=== PATIENT | female | born 1990 | race Caucasian/White ===

== ENCOUNTER 2017-06-18 19:58 | Emergency (ER) | payer MEDICAID, SELFPAY ==
[2017-06-18 19:59] VITALS: BP 142/82; PULSE 88; RESP 18; TEMP 36.7; O2SAT 96; BMI 36.6
--- NOTE | 2017-06-18 20:06 | XR_ITS ---
XR chest 2V Ordering Physician: Patient Age: 26 years: Female HISTORY: ITS.REASON: soa,chest pain Chest pain since this morning. Smoker. TECHNIQUE: PA and lateral chest COMPARISON :CTA chest November 2014 FINDINGS Lungs well expanded and clear with nothing definitely acute. Heart celeste and mediastinal structures satisfactory. No pneumothorax. No pleural effusion. IMPRESSION: Lungs clear nothing definite acute
[2017-06-18 20:18] LABS: Basophils # 0.1 K/mm3 (0-0.2); Basophils % 0.5 % (0.1-2.0); Eosinophils # 0.5 K/mm3 (0.0-0.4); Eosinophils % 3.2 % (0.1-12.0); Hematocrit 45.1 % (37.0-47.0); Hemoglobin 14.6 g/dL (12.2-16.2); Lymphocytes % 21.7 K/mm3 (10-50); Mean Corpuscular HGB Conc 32.3 g/dL (31.8-35.4); Mean Corpuscular Hemoglobin 27.8 pg (27.0-31.2); Mean Corpuscular Volume 86.2 fl (81-99); Mean Platelet Volume 7.8 fl (7.4-10.4); Monocytes # 0.8 K/mm3 (0.1-1.0); Monocytes % 5.7 % (1.7-9.3); Neutrophils # 9.4 K/mm3 (1.8-7.8); Neutrophils % 68.8 % (37.0-80.0); Platelet Count 251 K/mm3 (142-424); Red Blood Count 5.24 M/mm3 (4.20-5.40); Red Cell Distribution Width 13.8 % (11.5-17.5); White Blood Count 13.7 K/mm3 (4.8-10.8)
--- NOTE | 2017-06-18 20:23 | HMH.EDSOB ---
ED Disposition Clinical Impression: Chest pain Qualifiers: Chest pain type: unspecified Qualified Code(s): R07.9 - Chest pain, unspecified Disposition: Home, Self-Care Condition on Discharge: Good Instructions: DI for Atypical Chest Pain Additional Instructions: use nsaif and see pcp for follow up Referrals: Slava Crow MD [Primary Care Provider] - - Critical Care Critical Care Time: No Attestation: On , the high probability of a clinically significant, sudden or life threatening deterioration of the following system(s) required my full and direct attention, intervention and personal management. The time I documented below is in addition to time spent performing reported procedures but includes the following listed in this critical care notation. Medical Decision Making - Medical Records Medical records reviewed: Yes: I reviewed the patient's medical records. Vital Signs: 06/18/17 19:59 06/18/17 20:43 Temperature 98.1 F Temperature Source Oral Pulse Rate [Right Radial] 88 73 Respiratory Rate 18 20 Blood Pressure [Right Arm] 142/82 105/58 Blood Pressure Mean [Right Arm] 102 73 Blood Pressure Source [Right Arm] Automatic Cuff Automatic Cuff Blood Pressure Position [Right Arm] Sitting Supine 02 Sat by Pulse Oximetry 96 98 Oxygen Delivery Method Room Air Room Air - Lab Data Lab results reviewed: Yes: I reviewed the patient's lab results. Lab Results 06/18/17 20:10: WBC 13.7 H, RBC 5.24, Hgb 14.6, Hct 45.1, MCV 86.2, MCH 27.8, MCHC 32.3, RDW 13.8, Plt Count 251, MPV 7.8, Neut % (Auto) 68.8, Lymph % (Auto) 21.7, [place] % (Auto) 5.7, Eos % (Auto) 3.2, Baso % (Auto) 0.5, Neut # (Auto) 9.4 H, Lymph # (Auto) 3.0, [place] # (Auto) 0.8, Eos # (Auto) 0.5 H, Baso # (Auto) 0.1 06/18/17 20:10: Sodium 138, Potassium 3.8, Chloride 102, Carbon Dioxide 30, Anion Gap 9.8, BUN 12, Creatinine 0.74, Estimated Creat Clear 180, Estimated GFR 94, Est GFR ( Amer) 114, Glucose 77, Calcium 9.0, Total Bilirubin 0.2, AST 14 L, ALT 27, Alkaline Phosphatase 103, Total Creatine Kinase 89, CK-MB (CK-2) < 0.5, CK-MB (CK-2) Rel Index 0.6, Troponin I < 0.02, Total Protein 8.0, Albumin 3.8, Globulin 4.2 H, Albumin/Globulin Ratio 0.9 L 06/18/17 20:10: D-Dimer 114 Result diagrams: 06/18/17 20:10 06/18/17 20:10 Orders (Tests/Meds): ORDERS Category Date Time Status XR chest 2V Stat Exams 06/18/17 20:06 Taken - Radiology Data #1 Image(s): Chest Image Reviewed: Yes I reviewed the patient's radiology image Preliminary Findings: Normal/NAD - ECG Data Tracing #1 I reviewed this ECG and interpreted as documented below: Normal Sinus Rhythm: Yes Ischemic changes: non-specific ST-T wave changes - Fish Inquiry Pt receiving controlled substance: No Resp/SOB HPI - General Chief Complaint: Shortness of Breath/Dyspnea Stated Complaint: difficlulty breating Time Seen by Provider: 06/18/17 20:23 Mode of Arrival: Ambulatory Source of Information: Patient, Medical Record Limitations: No Limitations Description of Symptoms (Recalled from ER Triage Doc. by RN): Pt reports difficulty breathing with dull pain across the top of her chest that started at 5 this morning - History of Present Illness ant chest pain since this am with hx of sob over the last month with no fever/rash or trauma - inc with insp MD Complaint: shortness of breath, pain with inspiration, chest pain Onset (ago): hour(s) Severity: moderate Consistency/Duration: intermittent Relieving factors: nothing Exacerbating factors: inspiration - Related Data Home oxygen amount: none Home Medications Medication Instructions Recorded Confirmed buPROPion HCl [Wellbutrin SR 150mg 150 mg PO DAILY 06/18/17 06/18/17 Tablet] Allergies Allergy/AdvReac Type Severity Reaction Status Date / Time latex [LATEX] Allergy Unknown Verified 06/18/17 20:04 [facility] History I have reviewed the patient's past medical history: Yes Laterality Cases:
[2017-06-18 20:43] VITALS: BP 105/58; PULSE 73; RESP 20; O2SAT 98
[2017-06-18 20:44] LABS: Alanine Aminotransferase 27 U/L (12-78); Albumin Level 3.8 gm/dL (3.4-5.0); Albumin/Globulin Ratio 0.9 (1.1-1.8); Alkaline Phosphatase 103 U/L (46-116); Anion Gap 9.8 mEq/L (5-15); Aspartate Amino Transferase 14 U/L (15-37); Bilirubin,Total 0.2 mg/dL (0.2-1.0); Blood Urea Nitrogen 12 mg/dL (7-18); Carbon Dioxide 30 mmol/L (21.0-32.0); Chloride 102 mmol/L (98-107); Creatine Kinase 89 U/L (26-192); Creatinine Clearance Estimated 180 mL/min (0-300); Creatinine,Serum 0.74 mg/dL (0.55-1.02); Estimated Glomerular Filt Rate 94 ml/min (>60); GFR (African American) 114 ML/MIN (>60); Globulin 4.2 gm/dl (1.3-3.2); Glucose 77 mg/dL (74-106); Potassium 3.8 mmoL/L (3.5-5.1); Sodium 138 mmol/L (136-145); Troponin I < 0.02 ng/ml (0.00-0.06)
[2017-06-18 20:45] LABS: CKMB Relative Index 0.6 U/L (0-4.0); Creatine Kinase MB < 0.5 mg/ml (0.0-3.6)
[2017-06-18 21:26] LABS: D-Dimer 114 (0-400)
[2017-06-18 21:38] VITALS: BP 102/60; PULSE 72; RESP 20; TEMP 36.7; O2SAT 98
== END 2017-06-18 21:40 | disposition home or self-care (01) ==
PROVIDERS: Emergency Provider Emergency Medicine; Family Provider Internal Medicine Adolescent Medicine; PCP Internal Medicine Adolescent Medicine
DX: R07.9 Chest pain, unspecified (principal); F17.210 Nicotine dependence, cigarettes, uncomplicated
CPT/HCPCS: 71046; 80053; 82550; 82553; 84484; 85025; 85378; 99283

== ENCOUNTER 2018-05-25 08:30 | Outpatient (RCR) | payer SELFPAY ==
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
== END 2018-05-25 08:35 | disposition home or self-care (01) ==
LOC: PT 08:30
PROVIDERS: Visit Provider Internal Medicine Adolescent Medicine
DX: G44.309 Post-traumatic headache, unspecified, not intractable (principal)
CPT/HCPCS: 97010; 97014; 97035; 97110; 97140; 97163; G0283

== ENCOUNTER 2018-09-30 12:02 | Emergency (ER) | payer SELFPAY ==
[2018-09-30 12:03] VITALS: BP 138/75; PULSE 85; RESP 18; TEMP 37; O2SAT 98; BMI 39.4
[2018-09-30 12:07] VITALS: BMI 39.4
--- NOTE | 2018-09-30 12:07 | CT_ITS ---
CT head/brain wo con HISTORY: HISTORY of seizures ITS.REASON: seizure ORDERING PHYSICIAN: Timbo Wang MD PATIENT AGE: 28 years COMPARISON: CT head April 13, 2018 TECHNIQUE: Axial images obtained without contrast. Brain and bone windows reviewed. All CT scans at the facility use one or more dose reduction, viz: automated exposure control, ma/kV adjustment per patient size (including targeted exams where dose is matched to indication, i.e. head), or iterative reconstruction technique. FINDINGS: No acute intracranial findings. ] No significant changes previous CT head April 2017. The ventricles appear normal. Basal cisterns clear. No midline shift, mass effect, intracranial hemorrhage, hydrocephalus, or extra-axial fluid collection is evident. Posterior fossa unremarkable. The calvarium satisfactory appearance . The mastoid air cells are well-developed and clear. Middle ear clear. IACs unremarkable.. No mastoid effusion . paranasal sinus disease again evident as was noted on April, CT had:. Sphenoid sinus. Most notable is the moderate diffuse mucosal thickening which is increased since prior study at at left sphenoid sinus. Possible small air-fluid level here. Right sphenoid sinus with only trace mucosal thickening anteriorly. Ethmoid air cells colon. Mild mucosal thickening most evident at posterior left ethmoid air cell. Overall improvement of ethmoid air cell since April. Only the top of the maxillary sinuses, mild mucosal thickening which seems to have improved since April. Also mild adenoidal hypertrophy noted not uncommon feature and younger age patient ......IMPRESSION. ............. No acute intracranial findings. The brain appears stable WNL . paranasal sinus disease again noted. . Slight Improvement most areas versus April, however there has been progression of mucosal thickening at left left sphenoid sinus
--- NOTE | 2018-09-30 12:10 | PC.NURSE ---
Pt to rad
--- NOTE | 2018-09-30 12:25 | PC.NURSE ---
pt return from CT
[2018-09-30 12:38] LABS: Microscopic, Urine URINE MICROSCOPIC (MICROSCOPIC)
[2018-09-30 12:38] LABS: Basophils # 0.1 K/mm3 (0-0.2); Basophils % 0.7 % (0.1-2.0); Eosinophils # 0.3 K/mm3 (0.0-0.4); Eosinophils % 2.5 % (0.1-12.0); Hematocrit 46.1 % (37.0-47.0); Lymphocytes # 2.6 K/mm3 (0.7-4.5); Lymphocytes % 21.6 % (10-50); Mean Corpuscular HGB Conc 32.5 g/dL (31.8-35.4); Mean Corpuscular Hemoglobin 26.7 pg (27.0-31.2); Mean Corpuscular Volume 82.2 fl (81-99); Mean Platelet Volume 7.8 fl (7.4-10.4); Monocytes # 0.9 K/mm3 (0.1-1.0); Monocytes % 7.5 % (1.7-9.3); Neutrophils # 8.2 K/mm3 (1.8-7.8); Neutrophils % 67.7 % (37.0-80.0); Platelet Count 265 K/mm3 (142-424); Red Cell Distribution Width 13.7 % (11.5-17.5); White Blood Count 12.1 K/mm3 (4.8-10.8)
[2018-09-30 12:41] LABS: Appearance,Urine CLEAR (Clear); Bilirubin,Urine Negative (Negative); Blood, Urine Negative (Negative); Color,Urine YELLOW (Yellow); Glucose,Urine (UA) Negative (Negative); Ketones,Urine Negative (Negative); Leukocyte Esterase,Urine Negative (Negative); Nitrate,Urine Negative (Negative); Protein,Urine Negative (Negative); Specific Gravity, Urine 1.025 (1.005-1.030); Urobilinogen,Urine 0.2 EU/dl (0.2)
[2018-09-30 12:43] LABS: Urine Pregnancy, HCG Qual. Negative (Negative)
[2018-09-30 12:47] LABS: Bacteria,Urine 3+ /lpf; Mucus,Urine 4+ /lpf
[2018-09-30 12:47] LABS: Alanine Aminotransferase 23 U/L (12-78); Albumin Level 3.7 gm/dL (3.4-5.0); Albumin/Globulin Ratio 0.9 (1.1-1.8); Alkaline Phosphatase 97 U/L (46-116); Anion Gap 14.5 mEq/L (5-15); Aspartate Amino Transferase 12 U/L (15-37); Bilirubin,Total 0.6 mg/dL (0.2-1.0); Blood Urea Nitrogen 13 mg/dL (7-18); Calcium 8.8 mg/dL (8.5-10.1); Carbon Dioxide 26 mmol/L (21.0-32.0); Chloride 104 mmol/L (98-107); Creatinine Clearance Estimated 185 mL/min (50-200); Creatinine,Serum 0.74 mg/dL (0.55-1.02); Estimated Glomerular Filt Rate 93 ml/min (>60); GFR (African American) 112 ML/MIN (>60); Globulin 4.1 gm/dl (1.3-3.2); Glucose 93 mg/dL (74-106); Potassium 3.5 mmoL/L (3.5-5.1); Sodium 141 mmol/L (136-145); Total Protein,Serum 7.8 gm/dL (6.4-8.2)
[2018-09-30 12:48] LABS: Amphetamine/Metha Screen,Urine Negative ng/mL (<1000); Barbiturates Screen,Urine Negative ng/mL (<200); Benzodiazepines Screen,Urine Negative ng/mL (<200); Cannabinoid Screen,Urine Positive ng/mL (<50); Cocaine Screen,Urine Negative ng/mL (<300); Methadone Screen,Urine Negative ng/mL (<300); Opiate Screen,Urine Negative ng/mL (<300); Phencyclidine Screen,Urine Negative ng/mL (<25)
--- NOTE | 2018-09-30 13:04 | PC.NURSE ---
ANDRES ALEJANDRA at
--- NOTE | 2018-09-30 13:04 | PC.NURSE ---
pt is verbally responding to ER MD at this time during exam
--- NOTE | 2018-09-30 13:10 | PC.NURSE ---
ANDRES ALEJANDRA contacting [facility] to speak with neurology
--- NOTE | 2018-09-30 13:12 | HMH.EDGENADL ---
ED Disposition Clinical Impression: Seizure disorder, Chronic migraine, Obesity (BMI 30-39.9), Nicotine use disorder Clinical Impression: (Ruled Out): COPD (chronic obstructive pulmonary disease), Coronary artery calcification, Constipation, Renal cyst, Aneurysm of infrarenal abdominal aorta Disposition: Xfer Short-Term Hosp Condition on Discharge: Fair Instructions: DI for Seizure Disorder -- Adult, DI for Seizure (Not Epilepsy/Seizure Disorder), DI for Seizure Disorder -- Child Referrals: Provider,Referral, MD [Primary Care Provider] - Forms: Transfer Record - ED - Critical Care Critical Care Time: No Attestation: On 09/30/18, the high probability of a clinically significant, sudden or life threatening deterioration of the following system(s) required my full and direct attention, intervention and personal management. The time I documented below is in addition to time spent performing reported procedures but includes the following listed in this critical care notation. Medical Decision Making - Medical Records Medical records reviewed: Yes: I reviewed the patient's medical records. - Fish Inquiry Pt receiving controlled substance: No Fish was queried for this patient: No Vital Signs: 09/30/18 12:03 09/30/18 14:21 09/30/18 14:47 Temperature 98.6 F Temperature Source Axillary Pulse Rate Pulse Rate [Right Radial] 85 64 61 Respiratory Rate 18 12 Blood Pressure Blood Pressure [Right Arm] 138/75 124/80 115/63 Blood Pressure Mean [Right Arm] 96 94 80 Blood Pressure Source [Right Arm] Automatic Cuff Automatic Cuff Automatic Cuff Blood Pressure Position Blood Pressure Position [Right Arm] Sitting Supine Supine 02 Sat by Pulse Oximetry 98 98 96 Oxygen Delivery Method Room Air Room Air Room Air 09/30/18 15:00 09/30/18 16:03 09/30/18 16:35 Temperature 98.6 F Temperature Source Pulse Rate 61 Pulse Rate [Right Radial] 59 L 79 Respiratory Rate 18 Blood Pressure 119/68 Blood Pressure [Right Arm] 115/63 116/49 L Blood Pressure Mean [Right Arm] 80 71 Blood Pressure Source [Right Arm] Automatic Cuff Automatic Cuff Blood Pressure Position Sitting Blood Pressure Position [Right Arm] Sitting 02 Sat by Pulse Oximetry 97 96 Oxygen Delivery Method Room Air Room Air Room Air - Lab Data Lab Results 09/30/18 12:00: WBC 12.1 H, RBC 5.60 H, Hgb 15.0, Hct 46.1, MCV 82.2, MCH 26.7 L, MCHC 32.5, RDW 13.7, Plt Count 265, MPV 7.8, Neut % (Auto) 67.7, Lymph % (Auto) 21.6, [place] % (Auto) 7.5, Eos % (Auto) 2.5, Baso % (Auto) 0.7, Neut # (Auto) 8.2 H, Lymph # (Auto) 2.6, [place] # (Auto) 0.9, Eos # (Auto) 0.3, Baso # (Auto) 0.1 09/30/18 12:00: Sodium 141, Potassium 3.5, Chloride 104, Carbon Dioxide 26, Anion Gap 14.5, BUN 13, Creatinine 0.74, Estimated Creat Clear 185, Estimated GFR 93, Est GFR ( Amer) 112, Glucose 93, Calcium 8.8, Total Bilirubin 0.6, AST 12 L, ALT 23, Alkaline Phosphatase 97, Total Protein 7.8, Albumin 3.7, Globulin 4.1 H, Albumin/Globulin Ratio 0.9 L 09/30/18 12:10: Urine Color Yellow, Urine Appearance Clear, Urine pH 6.0, Ur Specific [place] 1.025, Urine Protein Negative, Urine Glucose (UA) Negative, Urine Ketones Negative, Urine Blood Negative, Urine Nitrate Negative, Urine Bilirubin Negative, Urine Urobilinogen 0.2, Ur Leukocyte Esterase Negative, Urine WBC 3-5, Ur Squamous Epith Cells 3-5, Urine Bacteria 3+, Urine Mucus 4+ 09/30/18 12:10: Urine HCG, Qual Negative 09/30/18 12:10: Urine Opiates Screen Negative, Urine Methadone Screen Negative, Ur Barbituates Screen Negative, Ur Phencyclidine Scrn Negative, Ur Amphetamines Screen Negative, U Benzodiazepines Scrn Negative, Urine Cocaine Screen Negative, U Marijuana (THC) Screen Positive H Result diagrams: 09/30/18 12:00 09/30/18 12:00 Orders (Tests/Meds): ORDERS Category Date Time Status Urine Culture Stat Micro 09/30/18 12:10 Received - CT Data CT Scan: Head Time Received: 20:[address] Reviewed: Yes: I have
--- NOTE | 2018-09-30 13:18 | ED_ITS ---
ED Disposition Clinical Impression: Seizure disorder, Chronic migraine, Obesity (BMI 30-39.9), Nicotine use disorder Clinical Impression: (Ruled Out): COPD (chronic obstructive pulmonary disease), Coronary artery calc ification, Constipation, Renal cyst, Aneurysm of infrarenal abdominal aorta Disposition: Xfer Short-Term Hosp Condition on Discharge: Fair Instructions: DI for Seizure Disorder -- Adult, DI for Seizure (Not Epilepsy/Seizure Disorder), DI for Seizure Disorder -- Child Referrals: Provider,Referral, MD [Primary Care Provider] - Forms: Transfer Record - ED - Critical Care Critical Care Time: No Attestation: On 09/30/18, the high probability of a clinically significant, sudden or life threatening deterioration of the following system(s) required my full and direct attention, intervention and personal management. The time I documented below is in addition to time spent performing reported procedures but includes the following listed in this critical care notation. Medical Decision Making - Medical Records Medical records reviewed: Yes: I reviewed the patient's medical records. - Fish Inquiry Pt receiving controlled substance: No Fish was queried for this patient: No Vital Signs: 09/30/18 12:03 09/30/18 14:21 09/30/18 14:47 Temperature 98.6 F Temperature Source Axillary Pulse Rate Pulse Rate [Right Radial] 85 64 61 Respiratory Rate 18 12 Blood Pressure Blood Pressure [Right Arm] 138/75 124/80 115/63 Blood Pressure Mean [Right Arm] 96 94 80 Blood Pressure Source [Right Arm] Automatic Cuff Automatic Cuff Automatic Cuff Blood Pressure Position Blood Pressure Position [Right Arm] Sitting Supine Supine 02 Sat by Pulse Oximetry 98 98 96 Oxygen Delivery Method Room Air Room Air Room Air 09/30/18 15:00 09/30/18 16:03 09/30/18 16:35 Temperature 98.6 F Temperature Source Pulse Rate 61 Pulse Rate [Right Radial] 59 L 79 Respiratory Rate 18 Blood Pressure 119/68 Blood Pressure [Right Arm] 115/63 116/49 L Blood Pressure Mean [Right Arm] 80 71 Blood Pressure Source [Right Arm] Automatic Cuff Automatic Cuff Blood Pressure Position Sitting Blood Pressure Position [Right Arm] Sitting 02 Sat by Pulse Oximetry 97 96 Oxygen Delivery Method Room Air Room Air Room Air - Lab Data Lab Results 09/30/18 12:00: WBC 12.1 H, RBC 5.60 H, Hgb 15.0, Hct 46.1, MCV 82.2, MCH 26.7 L , MCHC 32.5, RDW 13.7, Plt Count 265, MPV 7.8, Neut % (Auto) 67.7, Lymph % ( Auto) 21.6, [place] % (Auto) 7.5, Eos % (Auto) 2.5, Baso % (Auto) 0.7, Neut # (Auto) 8.2 H, Lymph # (Auto) 2.6, [place] # (Auto) 0.9, Eos # (Auto) 0.3, Baso # (Auto) 0.1 09/30/18 12:00: Sodium 141, Potassium 3.5, Chloride 104, Carbon Dioxide 26, Anion Gap 14.5, BUN 13, Creatinine 0.74, Estimated Creat Clear 185, Estimated GFR 93, Est GFR ( Amer) 112, Glucose 93, Calcium 8.8, Total Bilirubin 0.6, AST 12 L, ALT 23, Alkaline Phosphatase 97, Total Protein 7.8, Albumin 3.7, Globulin 4.1 H, Albumin/Globulin Ratio 0.9 L 09/30/18 12:10: Urine Color Yellow, Urine Appearance Clear, Urine pH 6.0, Ur Specific [place] 1.025, Urine Protein Negative, Urine Glucose (UA) Negative, U rine Ketones Negative, Urine Blood Negative, Urine Nitrate Negative, Urine Bilirubin Negative, Urine Urobilinogen 0.2, Ur Leukocyte Esteras
--- NOTE | 2018-09-30 13:25 | PC.NURSE ---
pt accepted to ER per Dr. Barrientos
--- NOTE | 2018-09-30 13:30 | PC.NURSE ---
[facility] aware of transfer on pt to , they do not have a truck available. They have attempted to contact another service to try and transport pt but no other services were available. Stated they will transport pt just as soon as a truck is available
[2018-09-30 14:21] VITALS: BP 124/80; PULSE 64; RESP 12; O2SAT 98
[2018-09-30 14:47] VITALS: BP 115/63; PULSE 61; O2SAT 96
[2018-09-30 15:00] VITALS: BP 115/63; PULSE 59; O2SAT 97
--- NOTE | 2018-09-30 15:21 | PC.NURSE ---
report called to FRANCIS Durant at ER
[2018-09-30 16:03] VITALS: BP 116/49; PULSE 79; O2SAT 96
--- NOTE | 2018-09-30 16:12 | PC.NURSE ---
report given to [facility] at this time
[2018-09-30 16:35] VITALS: BP 119/68; PULSE 61; RESP 18; TEMP 37; O2SAT 94
== END 2018-09-30 16:35 | disposition short-term general hospital (02) ==
PROVIDERS: Emergency Provider Emergency Medicine
DX: G40.909 Epilepsy, unspecified, not intractable, without status epilepticus (principal); G43.709 Chronic migraine without aura, not intractable, without status migrainosus; E66.9 Obesity, unspecified; F17.210 Nicotine dependence, cigarettes, uncomplicated
CPT/HCPCS: 70450; 80053; 80305; 81001; 81025; 85025; 87086; 99285

== ENCOUNTER 2018-12-23 14:23 | Outpatient (CLI) | payer MEDICAID, SELFPAY ==
--- NOTE | 2018-12-23 14:56 | PC.NURSE ---
DIFFICULTY WITH DOCUMENTATION... DRESSING CHANGE WAS PERFORMED TO LT ARMPIT. PACKING TAPE WAS REMOVED AND REPLACED, COVERED WITH STERILE GAUZE AND TEGADERM.
== END 2018-12-23 14:59 | disposition home or self-care (01) ==
LOC: UTC.OUT 14:24
PROVIDERS: PCP Internal Medicine Adolescent Medicine; Visit Provider Nurse Practitioner Family
DX: L02.412 Cutaneous abscess of left axilla (principal)

== ENCOUNTER 2019-05-23 20:48 | Observation (INO) ==
[2019-05-23 21:32] LABS: Basophils # 0.1 K/mm3 (0-0.2); Basophils % 0.5 % (0.1-2.0); Eosinophils # 0.4 K/mm3 (0.0-0.4); Eosinophils % 3.2 % (0.1-12.0); Hematocrit 40.2 % (37.0-47.0); Hemoglobin 13.8 g/dL (12.2-16.2); Lymphocytes # 2.2 K/mm3 (0.7-4.5); Lymphocytes % 19.9 % (10-50); Mean Corpuscular HGB Conc 34.3 g/dL (31.8-35.4); Mean Platelet Volume 7.8 fl (7.4-10.4); Monocytes # 0.5 K/mm3 (0.1-1.0); Monocytes % 4.8 % (1.7-9.3); Neutrophils # 7.9 K/mm3 (1.8-7.8); Neutrophils % 71.6 % (37.0-80.0); Platelet Count 256 K/mm3 (142-424); Red Blood Count 4.79 M/mm3 (4.20-5.40); Red Cell Distribution Width 13.6 % (11.5-17.5)
--- NOTE | 2019-05-23 21:42 | Emergency Department Note ---
ED Disposition Clinical Impression: Obesity (BMI 30-39.9) Abscess of skin or subcutaneous tissue Qualifiers: Site of cutaneous abscess: extremity Site of cutaneous abscess of extremity: axilla Laterality: left Qualified Code(s): L02.412 - Cutaneous abscess of left axilla Disposition: Admitted as Observation Condition on Discharge: Good - Critical Care Critical Care Time: No Attestation: On 05/23/19, the high probability of a clinically significant, sudden or life threatening deterioration of the following system(s) required my full and direct attention, intervention and personal management. The time I documented below is in addition to time spent performing reported procedures but includes the following listed in this critical care notation. Medical Decision Making - Medical Records Medical records reviewed: Yes: I reviewed the patient's medical records. - Fish Inquiry Pt receiving controlled substance: No Vital Signs: 05/23/19 20:59 Temperature 98.9 F Temperature Source Oral Pulse Rate [Right Brachial] 88 Respiratory Rate 18 Blood Pressure [Right Arm] 132/72 Blood Pressure Mean [Right Arm] 92 Blood Pressure Source [Right Arm] Automatic Cuff Blood Pressure Position [Right Arm] Sitting 02 Sat by Pulse Oximetry 98 Oxygen Delivery Method Room Air - Lab Data Lab results reviewed: Yes: I reviewed the patient's lab results. Lab Results 05/23/19 21:16: WBC 11.0 H, RBC 4.79, Hgb 13.8, Hct 40.2, MCV 84.0, MCH 28.8, MCHC 34.3, RDW 13.6, Plt Count 256, MPV 7.8, Neut % (Auto) 71.6, Lymph % (Auto) 19.9, [place] % (Auto) 4.8, Eos % (Auto) 3.2, Baso % (Auto) 0.5, Neut # (Auto) 7.9 H, Lymph # (Auto) 2.2, [place] # (Auto) 0.5, Eos # (Auto) 0.4, Baso # (Auto) 0.1 05/23/19 21:16: Lactate 0.8 Result diagrams: 05/23/19 21:16 Orders (Tests/Meds): ED MEDICATIONS Generic Name Dose Route Start Last Admin Trade Name Freq PRN Reason Stop Dose Admin Vancomycin HCl 2,000 mg 05/24/19 09:00 Vancomycin 1000mg Vial IV 06/07/19 08:59 DAILY STEF Protocol ORDERS Category Date Time Status Comprehensive Metabolic Panel Stat Lab 05/23/19 21:16 Received Blood Culture Stat Micro 05/23/19 21:16 Received Wound Culture and Gram Stain Stat Micro 05/23/19 21:04 Ordered Skin/Abscess/FB HPI - General Chief complaint: Skin/Abscess/Foreign Body Stated complaint: abcess under left arm Time Seen by Provider: 05/23/19 21:20 Mode of Arrival: Family Vehicle Source of Information: Patient, Significant Other, Medical Record Limitations: No Limitations Description of Symptoms (Recalled from ER Triage Doc. by RN): PT STATES SHE KEEPS GETTING RECURRENT ABSCESSES UNDER HER LEFT ARM. NOTED AN ABSECESS WITH SURROUNDING CELLULITIS AT SITE SHE DESCRIBED. STATES SHE HAD LEFTOVER BACTRIM AT HOME, AND STARTED HERSELF ON THAT, HAD 3 DOSES, NO IMPROVEMENT. - History of Present Illness HPI narrative: progressive abscess lt axilla with no known preg or diabetes and has had in past with prev i/d MD complaint: abscess/boil Onset (ago): day(s) Tetanus up to date: unsure Location: LUE Severity: moderate Associated symptoms: denies other symptoms Treatments prior to arrival: none - Related Data Home Medications Medication Instructions Recorded Confirmed Nortriptyline HCl 25 mg PO DAILY 04/24/19 05/23/19 lamoTRIgine [Lamotrigine] 50 mg PO BID 04/24/19 05/23/19 Allergies Allergy/AdvReac Type Severity Reaction Status Date / Time latex [LATEX] Allergy Unknown Verified 01/05/19 21:46 [facility] History - Hepatitis A Screen Drug use history?: No High risk sexual behaviors?: No History of sexually transmitted infection?: No Currently employed?: No Childcare worker?: No Do you have indoor plumbing?: Yes Do you have electricity?: Yes Attestation statement:: This patient has been screened for Hepatitis A risk factors. I have reviewed the patient's past medical history: Yes Medical History: Denies:: Cancer, Diabetes Mellitus Type 1, Diabetes Mellitus Type 2, MRSA Laterality Cases: Bilateral: Tonsillectomy, Other Other Surgeries: Yes: , Sinus Surgery, Tubal Ligation, Other Amputation: No - Social History Smoking Status: Current every day smoker Tobacco Type: cigarettes # Packs/Day (cigarettes): 1 Alcohol Intake: never Substance Use Type: denies use Occupational Status: employed Family Hx:: No significant family history ROS Obtained: Yes All systems reviewed & no additional complaints - Constitutional Constitutional: Denies fever(s) - Eyes Eyes: Denies change in vision - ENT Ears, Nose, Mouth, and Throat: Denies sore throat - Cardiovascular Cardiovascular: Denies chest pain - Respiratory Respiratory: No cough - Gastrointestinal Gastrointestingal: Denies: abdominal pain - Genitourinary Female Genitourinary: Denies hematuria - Musculoskeletal Musculoskeletal: Denies joint swelling - Integumentary/Breasts Skin/Breast: Denies rash - Neurologic Neurologic: Denies seizure-like activity Physical Exam - General General appearance: alert, obese - Head Head exam: normocephalic - Eye Eye exam: Present: PERRL, EOMI - ENT ENT exam: Present: mucous membranes moist - Neck Neck exam: Present: trachea midline - Respiratory Respiratory exam: Absent: respiratory distress - Cardiovascular Cardiovascular exam: Present: regular rate - Abdominal Exam Abdominal exam: Present: soft - Extremities Exam Extremities exam: Present: full ROM - Neurological Exam Neurological exam: Present: alert, oriented X3, CN II-XII intact - Psychiatric Psychiatric exam: Present: normal affect - Skin Skin exam: Present: other (tender 3x4 cm abscess lt axilla )
[2019-05-23 22:00] LABS: Albumin Level 3.9 g/dL (3.4-5.0); Anion Gap 14.6 mEq/L (5-15); Bilirubin,Total 0.4 mg/dL (0.2-1.0); Calcium 9.2 mg/dL (8.5-10.1); Globulin 3.8 gm/dl (1.3-3.2); Total Protein,Serum 7.7 g/dL (6.4-8.2)
--- NOTE | 2019-05-24 07:26 | Consult Report ---
*Admission Date: 05/23/19 *Reason for consult:: Left axillary abscess *History of present illness: This is a 28-year-old female admitted after presenting emergency department with increased pain/swelling/redness along the left axilla. She has history of axillary abscess and recently had a separate lesion that drained. No fevers. Review of Systems - Constitutional Denies fatigue - Eyes Denies change in vision - ENT Denies difficulty swallowing - *Cardiovascular Denies chest pain - *Respiratory Denies cough - *Gastrointestinal Denies abdominal pain - *Musculoskeletal Denies deformity - Integumentary/Breasts Reports redness, Reports new lesions - *Neurologic Denies seizure-like activity - Psychiatric Denies anxiety - Hematologic/Lymphatic Denies easy bleeding [facility] History Medical History: Denies:: Cancer, Diabetes Mellitus Type 1, Diabetes Mellitus Type 2, MRSA *Have you ever received a pneumonia vaccine?: Yes *Have you received a flu vaccine this season?: No Other Medical History: Reports: Liver Disease (fatty liver) Laterality Cases: Bilateral: Tonsillectomy, Other Other Surgeries: Yes: , Sinus Surgery, Tubal Ligation, Other Amputation: No - *Social History Educational Level: Completed High School Smoking Status: Current every day smoker Tobacco Type: cigarettes # Packs/Day (cigarettes): 1 Alcohol Intake: current Alcohol Intake Frequency:: holidays/special occasions only Substance Use Type: marijuana, prescription drug *Occupational Status:: employed *Travel in the last 8 weeks: None Family Hx:: Anemia, Cancer, Thyroid Disorder, Substance abuse Meds Home Medications Medication Instructions Recorded Confirmed Type Nortriptyline HCl 25 mg PO DAILY 04/24/19 05/23/19 History lamoTRIgine [Lamotrigine] 50 mg PO BID 04/24/19 05/23/19 History Allergies Allergy/AdvReac Type Severity Reaction Status Date / Time latex [LATEX] Allergy Unknown Verified 01/05/19 21:46 Exam Vital signs and Labs for Last 24 Hours: Temp Pulse Resp BP Pulse Ox 97.8 F 91 H 16 105/52 L 94 L 05/24/19 04:00 05/24/19 04:00 05/24/19 04:00 05/24/19 04:00 05/24/19 04:00 Laboratory Results - last 24 hr 05/23/19 21:16: WBC 11.0 H, RBC 4.79, Hgb 13.8, Hct 40.2, MCV 84.0, MCH 28.8, MCHC 34.3, RDW 13.6, Plt Count 256, MPV 7.8, Neut % (Auto) 71.6, Lymph % (Auto) 19.9, [place] % (Auto) 4.8, Eos % (Auto) 3.2, Baso % (Auto) 0.5, Neut # (Auto) 7.9 H, Lymph # (Auto) 2.2, [place] # (Auto) 0.5, Eos # (Auto) 0.4, Baso # (Auto) 0.1 05/23/19 21:16: Sodium 141, Potassium 3.6, Chloride 103, Carbon Dioxide 27, Anion Gap 14.6, BUN 14, Creatinine 0.83, Estimated Creat Clear 158, Estimated GFR 81, Est GFR ( Amer) 98, Glucose 106, Calcium 9.2, Total Bilirubin 0.4, AST 16, ALT 23, Alkaline Phosphatase 114, Total Protein 7.7, Albumin 3.9, Globulin 3.8 H, Albumin/Globulin Ratio 1.0 L 05/23/19 21:16: Lactate 0.8 I & O for Last 24 hours: Intake & Output 05/21/19 05/22/19 05/23/19 05/24/19 11:59 11:59 11:59 11:59 Intake Total 921 / 921 Balance 921 / 921 Weight 214 lb 4.629 oz - Constitutional no acute distress - *Routine Respiratory Exam Absent: respiratory distress - *Routine Cardiovascular Exam Present: RRR - *Routine Skin Exam Comments: Left axillary abscess with some mild surrounding erythema Results - Labs 05/23/19 21:16 05/23/19 21:16 Laboratory Results - last 24 hr 05/23/19 21:16: WBC 11.0 H, RBC 4.79, Hgb 13.8, Hct 40.2, MCV 84.0, MCH 28.8, MCHC 34.3, RDW 13.6, Plt Count 256, MPV 7.8, Neut % (Auto) 71.6, Lymph % (Auto) 19.9, [place] % (Auto) 4.8, Eos % (Auto) 3.2, Baso % (Auto) 0.5, Neut # (Auto) 7.9 H, Lymph # (Auto) 2.2, [place] # (Auto) 0.5, Eos # (Auto) 0.4, Baso # (Auto) 0.1 05/23/19 21:16: Sodium 141, Potassium 3.6, Chloride 103, Carbon Dioxide 27, Anion Gap 14.6, BUN 14, Creatinine 0.83, Estimated Creat Clear 158, Estimated GFR 81, Est GFR ( Amer) 98, Glucose 106, Calcium 9.2, Total Bilirubin 0.4, AST 16, ALT 23, Alkaline Phosphatase 114, Total Protein 7.7, Albumin 3.9, Globulin 3.8 H, Albumin/Globulin Ratio 1.0 L 05/23/19 21:16: Lactate 0.8 Assessment and Plan (1) Abscess of left axilla Current visit: Yes Status: Acute Category: Medical Code(s): L02.412 - Cutaneous abscess of left axilla She is being scheduled for incision and drainage of abscess later today. I have discussed the risks and benefits including, but not limited to: Bleeding Infection Damage to surrounding tissue Inherent risks of sedation The patient agrees to proceed.
--- NOTE | 2019-05-24 07:27 | Pharmacy Consult Notes ---
[facility] Pharmacy VTE Monitoring - Patient Demographics Admission date: 05/23/19 Report Date: 05/24/19 Time: 07:27 Allergies/Adverse Reactions: Patient Allergies latex [LATEX] Allergy (Unknown, Verified 01/05/19 21:46) Height: 1.65 m Weight: 97.2 kg Patient Problems: Current Active Problems Obesity (BMI 30-39.9) (Acute) Abscess of skin or subcutaneous tissue (Acute) - VTE Risk Labs: VTE Related Lab Results Hgb 13.8 g/dL (12.2-16.2) 05/23/19 21:16 Hct 40.2 % (37.0-47.0) 05/23/19 21:16 Plt Count 256 K/mm3 (142-424) 05/23/19 21:16 BUN 14 mg/dL (7-18) 05/23/19 21:16 Creatinine 0.83 mg/dL (0.55-1.02) 05/23/19 21:16 Estimated Creat Clear 158 mL/min (50-200) 05/23/19 21:16 VTE Score: 4 VTE Risk Level: Low Risk - Prophylaxis VTE Prophylaxis Ordered?: Yes Types of VTE Prophylaxis: TEDS Knee High Location of Applied Device: Bilateral Lower Extremeties
[2019-05-24 07:32] LABS: Basophils % 0.4 % (0.1-2.0); Eosinophils # 0.3 K/mm3 (0.0-0.4); Eosinophils % 2.8 % (0.1-12.0); Hematocrit 37.6 % (37.0-47.0); Lymphocytes # 2.2 K/mm3 (0.7-4.5); Lymphocytes % 21.7 % (10-50); Mean Corpuscular HGB Conc 32.6 g/dL (31.8-35.4); Mean Corpuscular Volume 86.1 fl (81-99); Mean Platelet Volume 7.9 fl (7.4-10.4); Monocytes # 0.6 K/mm3 (0.1-1.0); Monocytes % 5.8 % (1.7-9.3); Neutrophils % 69.4 % (37.0-80.0); Platelet Count 236 K/mm3 (142-424); Red Blood Count 4.37 M/mm3 (4.20-5.40); Red Cell Distribution Width 13.7 % (11.5-17.5)
[2019-05-24 07:58] LABS: Calcium 8.2 mg/dL (8.5-10.1)
[2019-05-24 08:35] LABS: Hemoglobin 12.3 g/dL (12.2-16.2)
--- NOTE | 2019-05-24 09:06 | History & Physical Report ---
*Admission Date: 05/23/19 *Chief complaint: left axillary swelling/abscess *History of present illness: Patient is a 28-year-old female with history of migraines and seizure disorder who presents with 1 week of worsening left axillary pain and swelling. She reports having a history of recurrent abscesses and noted onset of this lesion approximately a week ago. Was initially a small nodule and tender and after not resolving on its own, decided to take some leftover Bactrim that she had at home. She took 3 doses with no improvement and came to the ER last night due to worsening pain. Denies any fever, nausea, vomiting, diarrhea. No rashes. Does have a small lesion on her right lower flank that she thinks may be due to a contact dermatitis as she is allergic to certain metals. Otherwise well at her baseline. Staying hydrated. Admitted to medicine for further management. Consult to surgery placed, they already seen her this morning and are recommending I&D in the OR. Leading edge of erythematous region marked in the ER, unfortunately she did not receive her dose of vancomycin overnight and there is a slight progression of leading edge on her arm of the inflammation and erythema. [facility] History I have reviewed the patient's past medical history: Yes Medical History: Reports:: Migraine, Seizures Denies:: Cancer, Diabetes Mellitus Type 1, Diabetes Mellitus Type 2, MRSA *Have you ever received a pneumonia vaccine?: Yes *Have you received a flu vaccine this season?: No Other Medical History: Reports: Liver Disease (fatty liver) Laterality Cases: Bilateral: Tonsillectomy, Other Other Surgeries: Yes: , Sinus Surgery, Tubal Ligation, Other Amputation: No - *Social History Educational Level: Completed High School Smoking Status: Current every day smoker Tobacco Type: cigarettes # Packs/Day (cigarettes): 1 Alcohol Intake: current Alcohol Intake Frequency:: holidays/special occasions only Substance Use Type: marijuana, prescription drug *Occupational Status:: employed *Travel in the last 8 weeks: None Family Hx:: Anemia, Cancer, Thyroid Disorder, Substance abuse Review of Systems - Review of Systems Review of systems:: pertinent systems reviewed and negative unless documented below (14pt ROS performed, pertinent positives and negatives per HPI) - *Neurologic Denies seizure-like activity Meds Home Medications Medication Instructions Recorded Confirmed Type RX: Nortriptyline HCl 25 mg PO DAILY 04/24/19 05/23/19 History lamoTRIgine [Lamotrigine] 50 mg PO BID 04/24/19 05/23/19 History Allergies Allergy/AdvReac Type Severity Reaction Status Date / Time latex [LATEX] Allergy Unknown Verified 01/05/19 21:46 Exam Vital signs and Labs for Last 24 Hours: Temp Pulse Resp BP Pulse Ox 98.0 F 83 17 117/79 97 05/24/19 07:41 05/24/19 07:41 05/24/19 07:41 05/24/19 07:41 05/24/19 07:41 Laboratory Results - last 24 hr 05/23/19 21:16: WBC 11.0 H, RBC 4.79, Hgb 13.8, Hct 40.2, MCV 84.0, MCH 28.8, MCHC 34.3, RDW 13.6, Plt Count 256, MPV 7.8, Neut % (Auto) 71.6, Lymph % (Auto) 19.9, [place] % (Auto) 4.8, Eos % (Auto) 3.2, Baso % (Auto) 0.5, Neut # (Auto) 7.9 H, Lymph # (Auto) 2.2, [place] # (Auto) 0.5, Eos # (Auto) 0.4, Baso # (Auto) 0.1 05/23/19 21:16: Sodium 141, Potassium 3.6, Chloride 103, Carbon Dioxide 27, Anion Gap 14.6, BUN 14, Creatinine 0.83, Estimated Creat Clear 158, Estimated GFR 81, Est GFR ( Amer) 98, Glucose 106, Calcium 9.2, Total Bilirubin 0.4, AST 16, ALT 23, Alkaline Phosphatase 114, Total Protein 7.7, Albumin 3.9, Globulin 3.8 H, Albumin/Globulin Ratio 1.0 L 05/23/19 21:16: Lactate 0.8 05/24/19 06:48: WBC 10.0, RBC 4.37, Hgb 12.3 D, Hct 37.6, MCV 86.1, MCH 28.0, MCHC 32.6, RDW 13.7, Plt Count 236, MPV 7.9, Neut % (Auto) 69.4, Lymph % (Auto) 21.7, [place] % (Auto) 5.8, Eos % (Auto) 2.8, Baso % (Auto) 0.4, Neut # (Auto) 7.0, Lymph # (Auto) 2.2, [place] # (Auto) 0.6, Eos # (Auto) 0.3, Baso # (Auto) 0.0 05/24/19 06:48: Sodium 141, Potassium 4.0, Chloride 107, Carbon Dioxide 25, Anion Gap 13.0, BUN 13, Creatinine 0.63 D, Estimated Creat Clear 202, Estimated GFR 112, Est GFR ( Amer) 135 D, Glucose 87, Calcium 8.2 L D I & O for Last 24 hours: Intake & Output 05/21/19 05/22/19 05/23/19 05/24/19 23:59 23:59 23:59 23:59 Intake Total 921 / 921 Output Total 300 / 300 Balance 621 / 621 Weight 97.239 kg 97.2 kg - Constitutional no acute distress, obese - *Routine HEENT Exam Head: Present: normocephalic Eye: Present: EOMI, PERRL ENT: Present: mucous membranes moist - *Routine Neck Exam Present: supple. Absent: lymphadenopathy - *Routine Respiratory Exam Present: CTA bilaterally - *Routine Cardiovascular Exam Present: RRR - *Routine Abdominal Exam Present: soft, normoactive bowel sounds. Absent: tenderness - *Routine Extremities Exam Absent: cyanosis, clubbing, edema - *Routine Skin Exam Present: warm, lesions (Abscess left upper arm and axillary region, 5 cm of induration subcutaneous. Tender to palpation. Erythema that tracks down to her elbow. No drainage however a head is present on lesion. Mild warmth). Absent: rash - *Routine Neurological Exam Present: alert, oriented X3 Assessment and Plan (1) Abscess of left axilla Current visit: Yes Status: Acute Category: Medical Code(s): L02.412 - Cutaneous abscess of left axilla (2) Obesity (BMI 30-39.9) Current visit: Yes Status: Chronic Category: Medical Code(s): E66.9 - Obesity, unspecified (3) Chronic migraine Current visit: No Status: Chronic Category: Medical Code(s): G43.709 - Chronic migraine without aura, not intractable, without status migrainosus (4) Nicotine use disorder Current visit: No Status: Chronic Category: Medical Code(s): F17.200 - Nicotine dependence, unspecified, uncomplicated (5) Seizure disorder Current visit: No Status: Chronic Category: Medical Code(s): G40.909 - Epilepsy, unspecified, not intractable, without status epilepticus - Assessment and plan all Dx Assessment and Plan for all problems:: 28-year-old female with large abscess left axilla. Plan for I&D later today. Will broaden antibiotics with vancomycin and Zosyn. Further management pending surgical intervention. Continue treatment for seizure disorder and chronic migraines. Her obesity complicates all aspects of her care. Full code. Regular diet while she is able to eat. Seizure precautions at this time. Continues to require inpatient management
--- NOTE | 2019-05-24 09:19 | Pharmacy Consult Notes ---
- Pharmacy Consult Date: 05/24/19 Time: 09:18 Referring provider: DR. DAVENPORT Reason for Consult:: VANCOMYCIN DOSING Allergies and ADEs:: Allergies Allergy/AdvReac Type Severity Reaction Status Date / Time latex [LATEX] Allergy Unknown Verified 01/05/19 21:46 Home Medications:: Home Medications Medication Instructions Recorded Confirmed Type Nortriptyline HCl 25 mg PO DAILY 04/24/19 05/23/19 History lamoTRIgine [Lamotrigine] 50 mg PO BID 04/24/19 05/23/19 History Height: 1.65 m Weight: 97.2 kg Laboratory Results:: Laboratory Results - last 24 hr 05/23/19 21:16: WBC 11.0 H, RBC 4.79, Hgb 13.8, Hct 40.2, MCV 84.0, MCH 28.8, MCHC 34.3, RDW 13.6, Plt Count 256, MPV 7.8, Neut % (Auto) 71.6, Lymph % (Auto) 19.9, [place] % (Auto) 4.8, Eos % (Auto) 3.2, Baso % (Auto) 0.5, Neut # (Auto) 7.9 H, Lymph # (Auto) 2.2, [place] # (Auto) 0.5, Eos # (Auto) 0.4, Baso # (Auto) 0.1 05/23/19 21:16: Sodium 141, Potassium 3.6, Chloride 103, Carbon Dioxide 27, Anion Gap 14.6, BUN 14, Creatinine 0.83, Estimated Creat Clear 158, Estimated GFR 81, Est GFR ( Amer) 98, Glucose 106, Calcium 9.2, Total Bilirubin 0.4, AST 16, ALT 23, Alkaline Phosphatase 114, Total Protein 7.7, Albumin 3.9, Globulin 3.8 H, Albumin/Globulin Ratio 1.0 L 05/23/19 21:16: Lactate 0.8 05/24/19 06:48: WBC 10.0, RBC 4.37, Hgb 12.3 D, Hct 37.6, MCV 86.1, MCH 28.0, MCHC 32.6, RDW 13.7, Plt Count 236, MPV 7.9, Neut % (Auto) 69.4, Lymph % (Auto) 21.7, [place] % (Auto) 5.8, Eos % (Auto) 2.8, Baso % (Auto) 0.4, Neut # (Auto) 7.0, Lymph # (Auto) 2.2, [place] # (Auto) 0.6, Eos # (Auto) 0.3, Baso # (Auto) 0.0 05/24/19 06:48: Sodium 141, Potassium 4.0, Chloride 107, Carbon Dioxide 25, Anion Gap 13.0, BUN 13, Creatinine 0.63 D, Estimated Creat Clear 202, Estimated GFR 112, Est GFR ( Amer) 135 D, Glucose 87, Calcium 8.2 L D Medical History: Reports:: Migraine, Seizures Denies:: Cancer, Diabetes Mellitus Type 1, Diabetes Mellitus Type 2, MRSA Assessment and Plan (1) Abscess of left axilla Current visit: Yes Status: Acute Category: Medical Code(s): L02.412 - Cutaneous abscess of left axilla - Assessment and plan all Dx Assessment and Plan for all problems:: BASED ON PATIENT FACTORS, RECOMMEND VANCOMYCIN 2 GM IV Q12H. WILL OBTAIN VANCOMYCIN TROUGH LEVEL PRIOR TO 4TH DOSE. PHARMACY WILL FOLLOW DAILY AND ADJUST APPROPRIATE.
--- NOTE | 2019-05-24 13:03 | Operative Note ---
Date of procedure: 05/24/19 Pre-op Diagnosis:: Left axillary abscess Post-op Diagnosis:: Same Procedure performed:: Incision and drainage of left axillary abscess Surgeon:: John Thayer MD [facility] ATTENDANT:: Jeffery Wright Anesthesia: MAC, local Estimated blood loss (mL): 1 Operative findings:: 2 cm subcutaneous pocket of purulence Operative note:: After informed consent was obtained the patient was taken to the procedure room. After monitored anesthesia care ensued her left axillary region was prepped and draped in a sterile fashion. After infiltration with local anesthetic an elliptical incision was made around the central portion of the lesion utilizing electrocautery. A 2 cm pocket of purulence was immediately encountered. Fluid was obtained for Gram stain/culture. The overlying skin was excised and the pocket was evacuated of all contents. Electrocautery was utilized to achieve hemostasis. The wound was packed with Kerlix and dressings were applied. The patient was then transferred to recovery in stable condition. Condition: stable Disposition: no change Specimens:: Fluid for Gram stain/culture Complications:: No immediate
--- NOTE | 2019-05-24 14:23 | Progress Note ---
[facility] Anesthesia Checklist - Patient Identification Patient Identification: Arm Band - Structural Data Admitted From: Inpatient Planned Operative Procedure/s: I&D left axillary abscess Consent for Planned Operative Procedure(s) Verified: Yes Verified Documents: Surgical Consent, History and Physical - NPO Status Verified Time NPO: 00:00 - Additional verifications Anesthesia Reactions: No - Airway Assessment C-Spine Mobility Assessed: Yes (mp2) TMJ Mobility Assessed: Yes Dentition: Good Dentition - Neurological Assessment Level of Consciousness: Awake, Alert - Anesthesia Plan Anesthesia Risk discussed: Yes Anesthesia Plan: Verified ASA Class: II Anesthesia Type: MAC [facility] History I have reviewed the patient's past medical history: Yes Medical History: Reports:: Migraine, Seizures Denies:: Cancer, Diabetes Mellitus Type 1, Diabetes Mellitus Type 2, MRSA *Have you ever received a pneumonia vaccine?: Yes *Have you received a flu vaccine this season?: No Other Medical History: Reports: Liver Disease (fatty liver) Anesthesia experience/problems:: nac Laterality Cases: Bilateral: Tonsillectomy, Other Other Surgeries: Yes: , Sinus Surgery, Tubal Ligation, Other Amputation: No - *Social History Educational Level: Completed High School Smoking Status: Current every day smoker Tobacco Type: cigarettes # Packs/Day (cigarettes): 1 Alcohol Intake: current Alcohol Intake Frequency:: holidays/special occasions only Substance Use Type: marijuana, prescription drug *Occupational Status:: employed *Travel in the last 8 weeks: None Family Hx:: Anemia, Cancer, Thyroid Disorder, Substance abuse
[2019-05-25 07:55] VITALS: BP 92/53
--- NOTE | 2019-05-25 08:21 | Progress Note ---
Subjective Patient reports: no new complaints Exam Vital signs and Labs for Last 24 Hours: Temp Pulse Resp BP Pulse Ox 98.4 F 85 22 92/53 L 96 05/25/19 07:49 05/25/19 07:49 05/25/19 07:49 05/25/19 07:49 05/25/19 07:49 Laboratory Results - last 24 hr 05/24/19 06:48: WBC 10.0, RBC 4.37, Hgb 12.3 D, Hct 37.6, MCV 86.1, MCH 28.0, MCHC 32.6, RDW 13.7, Plt Count 236, MPV 7.9, Neut % (Auto) 69.4, Lymph % (Auto) 21.7, [place] % (Auto) 5.8, Eos % (Auto) 2.8, Baso % (Auto) 0.4, Neut # (Auto) 7.0, Lymph # (Auto) 2.2, [place] # (Auto) 0.6, Eos # (Auto) 0.3, Baso # (Auto) 0.0 05/24/19 12:20: Urine HCG, Qual Negative I & O for Last 24 hours: Intake & Output 05/22/19 05/23/19 05/24/19 05/25/19 11:59 11:59 11:59 11:59 Intake Total 921 / 921 2664 / 2664 Output Total 300 / 300 Balance 621 / 621 2664 / 2664 Weight 214 lb 4.629 oz 214 lb 4.629 oz Microbiology Reports for the Last 24 Hours: Microbiology 05/24/19 12:56 Axilla,Left Gram Stain - Final - Constitutional no acute distress - *Routine Respiratory Exam Absent: respiratory distress - *Routine Cardiovascular Exam Present: RRR - *Routine Skin Exam Comments: wound margin clean; unchanged blush/mild cellulitis; no increased induration Progress Note: A&P (1) Abscess of left axilla Status: Acute Assessment and plan: Overall, doing well status post incision and drainage. Complete course of antibiotics for cellulitic component Continue dressing changes Close outpatient follow-up Current Visit: Yes (2) Obesity (BMI 30-39.9) Status: Chronic Current Visit: Yes (3) Chronic migraine Status: Chronic Current Visit: No (4) Nicotine use disorder Status: Chronic Current Visit: No (5) Seizure disorder Status: Chronic Current Visit: No
--- NOTE | 2019-05-25 10:14 | Discharge Summary ---
General - General Admission date:: 05/23/19 Discharge date: 05/25/19 HPI HPI: Patient is a 28-year-old female with history of migraines and seizure disorder who presents with 1 week of worsening left axillary pain and swelling. She reports having a history of recurrent abscesses and noted onset of this lesion approximately a week ago. Was initially a small nodule and tender and after not resolving on its own, decided to take some leftover Bactrim that she had at home. She took 3 doses with no improvement and came to the ER last night due to worsening pain. Denies any fever, nausea, vomiting, diarrhea. No rashes. Does have a small lesion on her right lower flank that she thinks may be due to a contact dermatitis as she is allergic to certain metals. Otherwise well at her baseline. Staying hydrated. Admitted to medicine for further management. Consult to surgery placed, they already seen her this morning and are recommending I&D in the OR. Leading edge of erythematous region marked in the ER, unfortunately she did not receive her dose of vancomycin overnight and there is a slight progression of leading edge on her arm of the inflammation and erythema. Hospital Course Hospital Course: Admitted for failure of outpatient therapy, though inappropriate therapy, for treatment of left axillary abscess. Taken to the OR for I&D with good source control obtained. Tolerated IV antibiotics well with improvement in tenderness and receding leading edge of erythema. Patient remained hemodynamically stable, afebrile, no seizures during hospitalization. We will plan to transition oral Bactrim for a total of 10 days of antibiotics (9 days of Bactrim at discharge). We will have close follow-up tomorrow in clinic for wound care and repacking of incision. Denies chest pain, shortness of breath, nausea, vomiting, diarrhea. No seizures or confusion. Pain slightly improved. Medically stable for discharge home Objective Vital signs: Temp Pulse Resp BP Pulse Ox 98.4 F 85 22 92/53 L 96 05/25/19 07:49 05/25/19 07:49 05/25/19 07:49 05/25/19 07:49 05/25/19 08:00 Narrative: - Constitutional no acute distress, obese - *Routine HEENT Exam Head: Present: normocephalic Eye: Present: EOMI, PERRL ENT: Present: mucous membranes moist - *Routine Neck Exam Present: supple. Absent: lymphadenopathy - *Routine Respiratory Exam Present: CTA bilaterally - *Routine Cardiovascular Exam Present: RRR - *Routine Abdominal Exam Present: soft, normoactive bowel sounds. Absent: tenderness - *Routine Extremities Exam Absent: cyanosis, clubbing, edema - *Routine Skin Exam Present: Improvement in erythema on left upper arm, I&D with bloody discharge, no purulence. Tenderness somewhat improved. Serosanguineous drainage on bandaging. - *Routine Neurological Exam Present: alert, oriented X3 Results Labs on day of discharge: Labs from last 24 hours 05/24/19 12:20 Urine HCG, Qual Negative DS: Diagnosis - Discharge Diagnosis (1) Abscess of left axilla Status: Acute (2) Obesity (BMI 30-39.9) Status: Chronic (3) Chronic migraine Status: Chronic (4) Nicotine use disorder Status: Chronic (5) Seizure disorder Status: Chronic Discharge Plan - Patient Discharge Instructions ACTIVITY: Continue current activity DIET: continue same diet Patient Instructions: DI for Obesity -- Adult, DI for Incision and Drainage of a Skin Abscess, Incision and Drainage of a Skin Abscess, DI for Surgical Site Infection, DI for Skin Abscess - Follow up Plan Follow up with: John Thayer MD [Staff Physician] - 1 week Michael Michael MD [Staff Physician] - (Follow-up tomorrow 05/26/19) Disposition: Home, Self-Assisted Medications: Home Medications Medication Instructions Recorded Confirmed Type Nortriptyline HCl 25 mg PO DAILY 04/24/19 05/23/19 History lamoTRIgine [Lamotrigine] 50 mg PO BID 04/24/19 05/23/19 History Hydrocod/Acet 5/325 mg [[place] 1 tab PO Q8HP PRN 3 Days #6 tablet 05/25/19 Rx 5/325mg tablet] Sulfamethoxazole/Trimethoprim 1 each PO BID 9 Days #18 tab 05/25/19 Rx [Bactrim DS tablet] Prescriptions/Medication Reconciliation: New Hydrocod/Acet 5/325 mg [[place] 5/325mg tablet] 1 tab PO Q8HP PRN 3 Days #6 tablet PRN Reason: Breakthru Severe Pain Sulfamethoxazole/Trimethoprim [Bactrim DS tablet] 1 each PO BID 9 Days #18 tab Continued Nortriptyline HCl 25 mg PO DAILY lamoTRIgine [Lamotrigine] 50 mg PO BID - Problem Reconciliation Problems Reviewed?: Yes
== END 2019-05-25 11:25 | disposition home or self-care (01) ==
LOC: 2ND 20:48 → ER 20:48 → 2ND 23:14
PROVIDERS: ADMIT Emergency Medicine; ATTEND Internal Medicine Adolescent Medicine
CPT/HCPCS: 36415; 80048; 80053; 81025; 83605; 85025; 87040; 87070; 87075; 87205; 99282; G0378; J2543; J3370